=== PATIENT | male | born 1950 | race Caucasian/White ===

== ENCOUNTER 2016-12-11 05:30 | Inpatient (IN) | payer OTHER ==
[2016-11-29 11:56] VITALS: BMI 32.0
--- NOTE | 2016-11-29 12:32 | PAT Medication Instructions ---
Service Date Nov 29, 2016. Current Home Medication List Acetaminophen Tab (Tylenol), 325-650 MG PO PRN Calcium Carbonate-Vitamin D (Calcium + D), 1 TAB PO QPM Chlorthalidone (Hygroton), 50 MG PO QAM Cholecalciferol (Vitamin D3), 1 TAB PO QAM Coenzyme Q10 (Ubidecarenone) (Coq10), 100 MG PO QAM Fexofenadine Hcl (Reina Allergy), 1 TAB PO QAM Fish Oil ([place]-3), 100 MG PO QAM Fluticasone Propionate (Nasal) (Flonase Allergy Relief), 2 SPRAYS LINDA PRN Labetalol Hcl (Normodyne), 100 MG PO BID Levothyroxine Sodium (Synthroid), 175 MCG PO 4XWEEK Levothyroxine Sodium (Levothyroxine Sodium), 1 TAB PO 3XWEEK Milk Thistle (Silybum Marianum (Milk Thistle), 1,000 MG PO QPM Multivitamin (Multivitamin), 1 TAB PO QAM Pravastatin (Pravachol ), 20 MG PO HS Probiotic Product (Probiotic), 1 TAB PO BID Temazepam (Restoril), 15 MG PO HS PRN for PRN Tramadol (Ultram), 1 TAB PO TID PRN for RN [Vitamin B12], 1 TAB PO QAM Medication Instructions For Your Scheduled Surgery - Hold the following medications 1 weeks prior to surgery per surgeon's instructions: Coenzyme Q10 (Ubidecarenone) (Coq10), 100 MG PO QAM Fish Oil ([place]-3), 100 MG PO QAM Aspirin 81mg - Hold the following medications the morning of surgery: Chlorthalidone (Hygroton), 50 MG PO QAM Multivitamin (Multivitamin), 1 TAB PO QAM Probiotic Product (Probiotic), 1 TAB PO BID - Take the following medications the morning of surgery with a sip of water OTHERWISE NOTHING TO EAT OR DRINK AFTER MIDNIGHT: Labetalol Hcl (Normodyne), 100 MG PO BID Levothyroxine Sodium (Synthroid) Fluticasone Propionate (Nasal) (Flonase Allergy Relief), 2 SPRAYS LINDA PRN Tramadol (Ultram), 1 TAB PO TID PRN (may take up to 4 hours prior to surgery if needed) Acetaminophen Tab (Tylenol), 325-650 MG PO PRN (may take up to 4 hours prior to surgery if needed) - Take the following medications as scheduled the night before surgery: Labetalol Hcl (Normodyne), 100 MG PO BID Pravastatin (Pravachol ), 20 MG PO HS Tramadol (Ultram), 1 TAB PO TID PRN Calcium Carbonate-Vitamin D (Calcium + D), 1 TAB PO QPM Milk Thistle (Silybum Marianum (Milk Thistle), 1,000 MG PO QPM Temazepam (Restoril), 15 MG PO HS PRN Probiotic Product (Probiotic), 1 TAB PO BID If you have any questions please call us at [phone] or [phone] or [phone]
[2016-12-11] VITALS (9 sets, daily range): BP systolic 128–183; BP diastolic 71–95; PULSE 71–106; TEMP 36.5–37.1; O2SAT 95–99; Ht 177.8 cm; Wt 100.9 kg
[~2016-12-11] VITALS: Ht 177.8 cm; Wt 100.9 kg
[~2016-12-11 05:30] MED LIST: ACET325T96 PO; ASPI-232 PO; CALC600T9 PO; CHOL1000 PO; COEN100C7 PO; FEXO1TAB49 PO; FLUT0.15 NAE; HYG/25 PO; LBT/100 PO; LEVO175T PO; LEVO200T6 PO; MILK1CAP9 PO; MISCCAP80 PO; MULT-506 PO; OMEG10007 PO; PRAV20TA PO; TEMA15CA4 PO; TRAM-10 PO; VITAMIN B12 PO
[2016-12-11] MEDS ORDERED: LACTATED RINGER'S 1000ML 1,000 ML IV SCH (06:00)
[2016-12-11] MEDS ORDERED: [UNRECOGNIZED DRUG - OTHER] TOP (06:07)
[2016-12-11] MEDS ORDERED: CEFOXITIN IV 2,000 MG in DEXTROSE 5% 50ML 50 ML IV STA (06:17)
[2016-12-11] MEDS ORDERED: BUPIVACAINE 0.5 % 5 MG/1 ML MPF 30ML VIAL ONE (06:38)
[2016-12-11] MEDS ORDERED: ROCURONIUM BROMIDE 10 MG/ML 5 ML VIAL ONE ×2 (06:40→08:48)
[2016-12-11] MEDS ORDERED: MIDAZOLAM HCL 1 MG/ML 2ML VIAL ONE (06:40)
[2016-12-11] MEDS ORDERED: GLYCOPYRROLATE INJ 0.2 MG/ML VIAL ONE ×2 (06:40→08:48)
[2016-12-11] MEDS ORDERED: DEXAMETHASONE SOD INJ 4 MG/ML VIAL ONE (06:40)
[2016-12-11] MEDS ORDERED: LIDOCAINE HCL 2% 2 ML VIAL (20MG/ML) ONE (06:40)
[2016-12-11] MEDS ORDERED: FENTANYL CITRATE INJ 50 MCG/1 ML 2 ML VIAL ONE ×3 (06:40→09:43)
[2016-12-11] MEDS ORDERED: PROPOFOL IV EMULSION 10 MG/ML 20 ML VIAL IV ONE (06:40)
[2016-12-11] MEDS ORDERED: ONDANSETRON INJ 2 MG/ML 2 ML VIAL ONE ×2 (06:40→08:48)
[2016-12-11] MEDS ORDERED: NEOSTIGMINE METHYLSULFATE 5 MG/5 ML SYR ONE (06:40)
--- NOTE | 2016-12-11 06:59 | History & Physical Bridge Note ---
H&P Re-Evaluation Bridge Note: I have examined the patient, reviewed the History & Physical and in the interval since the performance of the History & Physical I have noted the following changes of clinical significance: No changes noted
[2016-12-11] MEDS ORDERED: FENTANYL CITRATE INJ 50 MCG/1 ML 2 ML VIAL IV PRN (09:30)
[2016-12-11] MEDS ORDERED: ONDANSETRON INJ 2 MG/ML 2 ML VIAL IV PRN ×2 (09:30→10:30)
[2016-12-11] MEDS ORDERED: ATROPINE SULFATE 0.1 MG/ML 5ML SYR IV PRN (09:30)
[2016-12-11] MEDS ORDERED: PROMETHAZINE HCL INJ 6.25 MG in SODIUM CHLORIDE 0.9% 50ML 50 ML IV PRN (09:30)
[2016-12-11] MEDS ORDERED: HYDROmorphone INJ 1 MG/ML SYR IV PRN (09:30)
[2016-12-11] MEDS ORDERED: EpHEDrine SULFATE INJ 50 MG/ML AMP IV PRN (09:30)
[2016-12-11] MEDS ORDERED: KETOROLAC TROMETHAMINE 30 MG/ML VIAL ONE (09:56)
[2016-12-11] MEDS ORDERED: NALOXONE HCL 0.4 MG/1 ML VIAL/CARP IV PRN (10:30)
[2016-12-11] MEDS ORDERED: HYDROmorphone HCL 0.5MG/ML 50 ML CASSETTE ONE (10:31)
--- NOTE | 2016-12-11 10:31 | [facility] Post Operative Brief Note ---
Immediate Operative Summary Operative Date Dec 11, 2016. Pre-Operative Diagnosis Tubular adenoma of colon with dysplasia Post-Operative Diagnosis Tubular adenoma of colon with dysplasia Procedure(s) Performed Laparscopic assisted right hemicolectomy Surgeon DR Rocky Silva Milk Of Lime Slaker Surgeon(s) Dalia Geronimo Estimated Blood Loss 20ML Findings See dictation Specimens A: RIGHT COLON Drains None Anesthesia General Complication(s) None Disposition Surgical ICU
--- NOTE | 2016-12-11 11:02 | Anesthesiology Progress Note ---
Anesthesia Post Op Note Date & Time Dec 11, 2016 at 11:02 Vital Signs Pain Intensity: 3 Vital Signs Past 12 Hours Date Time Temp Pulse Resp B/P Pulse Ox O2 Delivery O2 Flow Rate FiO2 12/11/16 10:55 86 16 143/78 99 Nasal Cannula 2 12/11/16 10:45 36.6 86 16 158/77 99 Nasal Cannula 2 12/11/16 10:35 87 14 157/82 100 Mask 10 12/11/16 10:25 86 14 154/73 100 Mask 10 12/11/16 10:17 36.1 88 14 152/78 100 Mask 10 12/11/16 05:44 36.7 83 22 170/95 97 Room Air Notes Mental Status: alert / awake / arousable, participated in evaluation Pt Amnestic to Procedure: Yes Nausea / Vomiting: adequately controlled Pain: adequately controlled Airway Patency, RR, SpO2: stable & adequate BP & HR: stable & adequate Hydration State: stable & adequate Anesthetic Complications: no major complications apparent
[2016-12-11] MEDS: SODIUM CHLORIDE 0.9% 1000ML 1,000 ML IV SCH ×2 (12:39→12:40)
[2016-12-11] MEDS: ALUMINUM/MAGNESIUM SUSP 30 ML UDC NG SCH ×3 (13:13→21:42)
[2016-12-11] MEDS: D5W AND 1/2NSS + 20MEQ KCL 1,000 ML IV SCH ×2 (13:13→21:53)
[2016-12-11 13:58] LABS: HEMATOCRIT 42.8 % (42-52); MEAN CELL VOLUME 85.9 fL (80-100); MEAN CORPUSCULAR HEMOGLOBIN 31.5 pg (25-34); MEAN CORPUSCULAR HGB CONC 36.7 g/dl (32-36); MEAN PLATELET VOLUME 10.8 fL (7.4-10.4); PLATELET COUNT 210 K/uL (130-400); RED BLOOD COUNT 4.98 M/uL (4.7-6.1); WHITE BLOOD COUNT 12.31 K/uL (4.8-10.8)
[2016-12-11 14:12] LABS: INR 1.1 (0.9-1.1); PROTHROMBIN TIME (PATIENT) 11.4 SECONDS (9.0-12.0)
[2016-12-11 14:14] LABS: CREATININE 1.1 mg/dl (0.60-1.40)
--- NOTE | 2016-12-11 18:54 | OPERATIVE REPORT ---
DATE OF OPERATION: 12/11/2016 PREOPERATIVE DIAGNOSIS: Tubular adenoma with severe dysplasia in the right colon. POSTOPERATIVE DIAGNOSIS: Same. PROCEDURE: Laparoscopic assisted right hemicolectomy. SURGEON: Dr. Silva. RN OFFICE: Dalia Geronimo PA-C. FINDINGS: The site of the tubular adenoma with severe dysplasia had been inked and that was easily identified in the right colon. The right colectomy was easily performed. The anastomosis was wide. There were no other gross abnormalities of the colon identified. The liver appeared to be of normal size and contour. TECHNIQUE: The patient was given a general anesthetic and the area was prepped and draped in the usual sterile fashion. A small vertical incision was made above the umbilicus, carried down through the subcutaneous tissue to the fascia which was grasped with 2 Reinier clamps and incised between. The peritoneum was identified, incised, and the introducer was placed bluntly. The abdomen was then insufflated to a pressure of 15 mmHg with carbon dioxide. The 2 left-sided 5 mm introducers were placed under direct vision through small skin incision. The right lower quadrant introducer was placed under direct vision through small skin incision. Traction was placed medially at the cecum and terminal ileum. There were some adhesions from his previous appendectomy that were taken down, which freed the entire terminal ileum. I then worked from inferior to superior along the line of Toldt and divided those attachments working from anterior to posterior up to the splenic flexure. When I reached the splenic flexure, I then was able to identify the beginning attachment of the omentum and I the omentum off the transverse colon working from initially right towards the left till I was about the mid transverse colon. I then divided the peritoneal attachments freeing the hepatic flexure. All of that dissection was done with the LigaSure. I was able to identify the duodenum left in its anatomic position. The dissection was carried and using blunt cautery dissection until the mesentery was freed down to the base. I then divided some other flimsy attachments along the right colon, which freed it such that it would be able to be brought to the midline with ease. The vertical midline incision above the umbilicus was then lengthened. The layers were opened along the length of the skin incision. I was able then to easily bring the terminal ileum and right colon and the proximal third of the transverse colon out through the incision. The site on the small bowel for division was chosen and the mesentery was away from the bowel there. It was divided using the RONY stapler. A site on the transverse colon was chosen and the mesentery was away from the bowel there and it was also divided using the RONY stapler. The intervening mesentery was divided using LigaSure, but the major vessels were doubly clamped, divided, and ligated with a 2-0 Vicryl tie and a 2-0 Vicryl suture ligature. This was completed and the specimen removed. The area was inspected for bleeding and none was seen. The anastomosis was then performed. The small bowel was approximated to the wall of the colon using stay sutures of 3-0 silk. The antimesenteric border of each staple line was removed and the RONY stapler was passed into each limb of the bowel and it was then fired. The staple line was inspected internally for bleeding and none was seen. The common opening was closed with a firing of a TA 60 stapler. Additional 3-0 silk sutures were placed for reinforcement. The mesentery was closed with a running 2-0 Vicryl. That was placed back into its anatomic position and the omentum was brought down over the anastomosis. The three 5 mm introducers had been previously removed. The fascia of the midline incision was closed with a running #1 PDS. The wounds were irrigated and irrigation removed. The skin was closed with aurelia. Estimated blood loss was 20 mL. Sponge, needle and instrument counts were correct prior to closure. The patient tolerated the surgical procedure without complication and was transferred to recovery. I attest to the content of the Intraoperative Record and any orders documented therein. Any exceptions are noted below. MTDD
[2016-12-11] MEDS: HYDROmorphone HCL 0.5MG/ML 50 ML CASSETTE IV PRN ×2 (18:56→22:56)
[2016-12-12] VITALS (8 sets, daily range): BP systolic 146–169; BP diastolic 68–79; PULSE 73–85; TEMP 36.6–37.1; O2SAT 93–98
[2016-12-12] MEDS: D5W AND 1/2NSS + 20MEQ KCL 1,000 ML IV SCH ×3 (05:46→20:38)
[2016-12-12] MEDS: HYDROmorphone HCL 0.5MG/ML 50 ML CASSETTE IV PRN ×3 (07:09→23:02)
--- NOTE | 2016-12-12 07:26 | Surgery Progress Note ---
Surgery Progress Note Date of Service Dec 12, 2016. Subjective + pain controlled (having mild pain), No bowel movement, No flatus, No nausea, No vomiting Objective Vital Signs: Date Time Temp Pulse Resp B/P Pulse Ox O2 Delivery O2 Flow Rate FiO2 12/12/16 03:15 36.9 85 17 146/74 96 Room Air 12/12/16 00:15 Room Air 12/11/16 22:53 36.9 95 17 128/71 95 Room Air 12/11/16 20:00 Room Air 12/11/16 16:01 37.1 105 17 139/83 96 Room Air 12/11/16 14:25 36.8 106 16 160/89 97 Room Air 12/11/16 13:15 36.5 103 16 156/80 98 2.0 12/11/16 12:15 98 16 169/79 98 2.0 12/11/16 11:45 36.5 93 16 183/80 99 2.0 12/11/16 11:21 99 Nasal Cannula 2.0 12/11/16 11:15 99 Nasal Cannula 2.0 12/11/16 11:15 36.6 71 16 155/81 99 Nasal Cannula 2.0 12/11/16 11:05 36.6 88 16 137/86 99 Nasal Cannula 2 12/11/16 10:55 86 16 143/78 99 Nasal Cannula 2 12/11/16 10:45 36.6 86 16 158/77 99 Nasal Cannula 2 12/11/16 10:35 87 14 157/82 100 Mask 10 12/11/16 10:25 86 14 154/73 100 Mask 10 12/11/16 10:17 36.1 88 14 152/78 100 Mask 10 Abdomen: non distended, soft, + tenderness (Incisional only) Incision(s): clean, dry, intact, no erythema, no drainage Laboratory Results: Results Past 24 Hours Test 12/11/16 13:51 12/12/16 04:44 Range/Units White Blood Count 12.31 4.8-10.8 K/uL Red Blood Count 4.98 4.7-6.1 M/uL Hemoglobin 15.7 14.0-18.0 g/dL Hematocrit 42.8 42-52 % Mean Corpuscular Volume 85.9 80-100 fL Mean Corpuscular Hemoglobin 31.5 25-34 pg Mean Corpuscular Hemoglobin Concent 36.7 32-36 g/dl RDW Standard Deviation 40.5 36.4-46.3 fL RDW Coefficient of Variation 12.8 11.5-14.5 % Platelet Count 210 130-400 K/uL Mean Platelet Volume 10.8 7.4-10.4 fL Prothrombin Time 11.4 9.0-12.0 SECONDS Prothromb Time International Ratio 1.1 0.9-1.1 Activated Partial Thromboplast Time 25.7 21.0-31.0 SECONDS Partial Thromboplastin Ratio 1.0 Creatinine 1.10 0.60-1.40 mg/dl Est Creatinine Clear Calc Drug Dose 77.6 ml/min Estimated GFR () 80.1 Estimated GFR (Non- 69.1 Assessment & Plan S/P laparoscopic assisted right colectomy Stable Labs pending OOB today Continue NGT for now Path pending
[2016-12-12] MEDS: ALUMINUM/MAGNESIUM SUSP 30 ML UDC NG SCH ×4 (07:59→20:38)
[2016-12-12 08:25] LABS: COMPLETE YES; EOS % 0.1 %; HEMATOCRIT 39.1 % (42-52); IG% 0.2 %; LYMPH % 13.7 %; LYMPH ABS # 1.71 K/uL (1.2-3.4); MEAN CORPUSCULAR HEMOGLOBIN 30.4 pg (25-34); MEAN CORPUSCULAR HGB CONC 35.8 g/dl (32-36); MEAN PLATELET VOLUME 10.5 fL (7.4-10.4); MONO % 9.5 %; NEUT % 76.5 %; PLATELET COUNT 211 K/uL (130-400); WHITE BLOOD COUNT 12.48 K/uL (4.8-10.8)
[2016-12-12 08:48] LABS: BUN/CREATININE RATIO 14.3 (10-20); CALCIUM 8.7 mg/dl (8.5-10.1); CREATININE 1.1 mg/dl (0.60-1.40)
[2016-12-12] MEDS: ENOXAPARIN 40 MG/0.4 ML SYR SQ SCH (10:14)
[2016-12-12] MEDS ORDERED: NURSING DECISION MEDICATION ORDER SCH (15:15)
[2016-12-12] MEDS ORDERED: CHLORASEPTIC 1.4% SOLN 180 ML BTL MT PRN (15:30)
--- NOTE | 2016-12-12 16:15 | Anesthesiology Progress Note ---
Anesthesia Post Op Note Date & Time Dec 12, 2016 at 16:14 Vital Signs Vital Signs Past 12 Hours Date Time Temp Pulse Resp B/P Pulse Ox O2 Delivery O2 Flow Rate FiO2 12/12/16 15:29 36.8 79 18 169/72 95 Room Air 12/12/16 11:47 36.8 80 18 154/68 98 Room Air 12/12/16 10:26 96 Room Air 12/12/16 07:31 36.7 73 18 151/79 93 Room Air 12/12/16 07:28 96 Room Air Notes Mental Status: alert / awake / arousable, participated in evaluation Pt Amnestic to Procedure: Yes Nausea / Vomiting: adequately controlled Pain: adequately controlled Airway Patency, RR, SpO2: stable & adequate BP & HR: stable & adequate Hydration State: stable & adequate Anesthetic Complications: no major complications apparent
[2016-12-13] VITALS (8 sets, daily range): BP systolic 135–171; BP diastolic 76–88; PULSE 67–81; TEMP 36.7–37; O2SAT 94–97
[2016-12-13] MEDS: D5W AND 1/2NSS + 20MEQ KCL 1,000 ML IV SCH ×3 (04:29→20:35)
[2016-12-13 06:33] LABS: BASO % 0.3 %; BASO ABS # 0.03 K/uL (0-0.2); COMPLETE YES; EOS % 1.6 %; HEMATOCRIT 40.3 % (42-52); IG% 0.2 %; LYMPH ABS # 1.96 K/uL (1.2-3.4); MEAN CELL VOLUME 86.9 fL (80-100); MEAN CORPUSCULAR HGB CONC 35.7 g/dl (32-36); MEAN PLATELET VOLUME 10.6 fL (7.4-10.4); MONO % 12.4 %; NEUT % 63.5 %; PLATELET COUNT 185 K/uL (130-400); RED BLOOD COUNT 4.64 M/uL (4.7-6.1); WHITE BLOOD COUNT 8.89 K/uL (4.8-10.8)
[2016-12-13] MEDS: HYDROmorphone HCL 0.5MG/ML 50 ML CASSETTE IV PRN ×3 (07:01→22:55)
--- NOTE | 2016-12-13 07:04 | Surgery Progress Note ---
Surgery Progress Note Date of Service Dec 13, 2016. Subjective Post OP Day: 2 No bowel movement, No flatus, No nausea, No vomiting Objective Vital Signs: Date Time Temp Pulse Resp B/P Pulse Ox O2 Delivery O2 Flow Rate FiO2 12/13/16 02:45 36.7 77 17 164/77 97 Room Air 12/13/16 00:45 Room Air 12/12/16 23:25 37.1 79 17 155/77 94 Room Air 12/12/16 17:30 36.6 79 21 152/72 97 Room Air 12/12/16 16:00 Room Air 12/12/16 15:29 36.8 79 18 169/72 95 Room Air 12/12/16 11:47 36.8 80 18 154/68 98 Room Air 12/12/16 10:26 96 Room Air 12/12/16 07:31 36.7 73 18 151/79 93 Room Air 12/12/16 07:28 96 Room Air Abdomen: non distended, soft, + tenderness (minimal) Incision(s): clean, dry, intact, no erythema, no drainage Laboratory Results: Results Past 24 Hours Test 12/12/16 08:05 12/13/16 06:06 Range/Units White Blood Count 12.48 8.89 4.8-10.8 K/uL Red Blood Count 4.60 4.64 4.7-6.1 M/uL Hemoglobin 14.0 14.4 14.0-18.0 g/dL Hematocrit 39.1 40.3 42-52 % Mean Corpuscular Volume 85.0 86.9 80-100 fL Mean Corpuscular Hemoglobin 30.4 31.0 25-34 pg Mean Corpuscular Hemoglobin Concent 35.8 35.7 32-36 g/dl Platelet Count 211 185 130-400 K/uL Mean Platelet Volume 10.5 10.6 7.4-10.4 fL Neutrophils (%) (Auto) 76.5 63.5 % Lymphocytes (%) (Auto) 13.7 22.0 % Monocytes (%) (Auto) 9.5 12.4 % Eosinophils (%) (Auto) 0.1 1.6 % Basophils (%) (Auto) 0.0 0.3 % Neutrophils # (Auto) 9.54 5.64 1.4-6.5 K/uL Lymphocytes # (Auto) 1.71 1.96 1.2-3.4 K/uL Monocytes # (Auto) 1.19 1.10 0.11-0.59 K/uL Eosinophils # (Auto) 0.01 0.14 0-0.5 K/uL Basophils # (Auto) 0.00 0.03 0-0.2 K/uL RDW Standard Deviation 39.6 41.8 36.4-46.3 fL RDW Coefficient of Variation 12.9 13.1 11.5-14.5 % Immature Granulocyte % (Auto) 0.2 0.2 % Immature Granulocyte # (Auto) 0.03 0.02 0.00-0.02 K/uL Sodium Level 137 136-145 mmol/L Potassium Level 3.0 3.5-5.1 mmol/L Chloride Level 102 98-107 mmol/L Carbon Dioxide Level 26 21-32 mmol/L Anion Gap 9.0 3-11 mmol/L Blood Urea Nitrogen 16 7-18 mg/dl Creatinine 1.10 0.60-1.40 mg/dl Est Creatinine Clear Calc Drug Dose 77.6 ml/min Estimated GFR () 80.1 Estimated GFR (Non- 69.1 BUN/Creatinine Ratio 14.3 10-20 Random Glucose 150 70-99 mg/dl Calcium Level 8.7 8.5-10.1 mg/dl Assessment & Plan S/P laparoscopic assisted right colectomy Stable WBC normal Continue to ambulate Continue NGT for now Path pending
[2016-12-13 07:07] LABS: BUN/CREATININE RATIO 11.5 (10-20); CALCIUM 8.4 mg/dl (8.5-10.1); POTASSIUM 3.2 mmol/L (3.5-5.1)
[2016-12-13] MEDS: ALUMINUM/MAGNESIUM SUSP 30 ML UDC NG SCH ×4 (08:38→20:29)
[2016-12-13] MEDS: SODIUM CHLORIDE 0.9% 1000ML 1,000 ML IV SCH (10:14)
[2016-12-13] MEDS: ENOXAPARIN 40 MG/0.4 ML SYR SQ SCH (10:15)
[2016-12-13] MEDS ORDERED: NURSING VERBAL MED ORDER ONE (17:00)
[2016-12-13] MEDS: LABETALOL HCL 100 MG TAB PO SCH (20:35)
[2016-12-14] VITALS (8 sets, daily range): BP systolic 137–197; BP diastolic 75–97; PULSE 60–75; TEMP 36.7–36.9; O2SAT 96–98
[2016-12-14] MEDS: D5W AND 1/2NSS + 20MEQ KCL 1,000 ML IV SCH ×2 (04:26→12:24)
[2016-12-14 06:43] LABS: BASO % 0.3 %; BASO ABS # 0.02 K/uL (0-0.2); COMPLETE YES; EOS % 4.4 %; HEMATOCRIT 38.7 % (42-52); IG% 0.1 %; LYMPH % 29.2 %; LYMPH ABS # 2.13 K/uL (1.2-3.4); MEAN CELL VOLUME 89.4 fL (80-100); MEAN CORPUSCULAR HEMOGLOBIN 30.9 pg (25-34); MEAN CORPUSCULAR HGB CONC 34.6 g/dl (32-36); MEAN PLATELET VOLUME 11.2 fL (7.4-10.4); MONO % 12.3 %; NEUT % 53.7 %; PLATELET COUNT 174 K/uL (130-400); RED BLOOD COUNT 4.33 M/uL (4.7-6.1)
[2016-12-14] MEDS: HYDROmorphone HCL 0.5MG/ML 50 ML CASSETTE IV PRN ×2 (06:48→08:09)
[2016-12-14] MEDS: LABETALOL HCL 100 MG TAB PO SCH ×2 (08:06→21:26)
[2016-12-14] MEDS: ALUMINUM/MAGNESIUM SUSP 30 ML UDC NG SCH (08:06)
[2016-12-14] MEDS: SODIUM CHLORIDE 0.9% 1000ML 1,000 ML IV SCH (10:00)
[2016-12-14] MEDS: ENOXAPARIN 40 MG/0.4 ML SYR SQ SCH (10:29)
[2016-12-14] MEDS ORDERED: NURSING VERBAL MED ORDER ONE (11:30)
[2016-12-14] MEDS ORDERED: TEMAZEPAM 15 MG CAP PO PRN (12:30)
[2016-12-14] MEDS ORDERED: OXYCODONE/ACETAMINOPHEN 5-325 TAB PO PRN (12:30)
--- NOTE | 2016-12-14 14:52 | Surgery Progress Note ---
Surgery Progress Note Date of Service Dec 14, 2016. Subjective Post OP Day: 3 (S/p laparoscopic assisted right hemicolectomy with primary anastomosis) + ambulating (in room), + bowel movement, + diet (tolerating clear liquids), + feeling well, + flatus, + pain controlled, + using DIABETES MANAGER (minimal), No SOB, No chest pain, No complaints, No nausea, No vomiting Objective Vital Signs: Date Time Temp Pulse Resp B/P Pulse Ox O2 Delivery O2 Flow Rate FiO2 12/14/16 11:05 36.7 65 16 157/80 96 Room Air 12/14/16 07:54 96 Room Air 12/14/16 07:26 36.9 68 16 197/97 96 Room Air 12/14/16 03:40 36.8 61 17 169/84 98 Room Air 12/14/16 00:11 Room Air 12/13/16 22:52 36.9 72 18 152/85 96 Room Air 12/13/16 20:34 70 170/86 12/13/16 19:59 37.0 81 16 167/88 96 Room Air 12/13/16 16:00 Room Air 12/13/16 15:15 36.8 67 16 171/83 96 Room Air General Appearance: WD/WN, no apparent distress Head: normocephalic, atraumatic Respiratory/Chest: no respiratory distress, no accessory muscle use Abdomen: non tender, non distended, soft Incision(s): clean, dry, intact, no drainage, erythema (slight, no cellulitis) Extremities: normal range of motion Laboratory Results: Results Past 24 Hours Test 12/14/16 05:13 Range/Units White Blood Count 7.30 4.8-10.8 K/uL Red Blood Count 4.33 4.7-6.1 M/uL Hemoglobin 13.4 14.0-18.0 g/dL Hematocrit 38.7 42-52 % Mean Corpuscular Volume 89.4 80-100 fL Mean Corpuscular Hemoglobin 30.9 25-34 pg Mean Corpuscular Hemoglobin Concent 34.6 32-36 g/dl Platelet Count 174 130-400 K/uL Mean Platelet Volume 11.2 7.4-10.4 fL Neutrophils (%) (Auto) 53.7 % Lymphocytes (%) (Auto) 29.2 % Monocytes (%) (Auto) 12.3 % Eosinophils (%) (Auto) 4.4 % Basophils (%) (Auto) 0.3 % Neutrophils # (Auto) 3.92 1.4-6.5 K/uL Lymphocytes # (Auto) 2.13 1.2-3.4 K/uL Monocytes # (Auto) 0.90 0.11-0.59 K/uL Eosinophils # (Auto) 0.32 0-0.5 K/uL Basophils # (Auto) 0.02 0-0.2 K/uL RDW Standard Deviation 42.5 36.4-46.3 fL RDW Coefficient of Variation 12.9 11.5-14.5 % Immature Granulocyte % (Auto) 0.1 % Immature Granulocyte # (Auto) 0.01 0.00-0.02 K/uL Assessment & Plan POD # 3 s/p Laparoscopic assisted right hemicolectomy with primary anastomosis - AVSS except hypertensive, ordered home beta jesus alberto last evening - return of bowel function - minimal abdominal pain - tolerating full liquids PLAN: Advance diet to full liquids Decrease IV fluids @83 mls/hr d/c Dilaudid DIABETES MANAGER Start oral Percocet prn pain start all home meds encourage ambulation Hopeful discharge later tomorrow or Sunday morning Dr. Silva has seen and examined patient and is in agreement with above stated findings and treatment plan.
[2016-12-14] MEDS: PRAVASTATIN SOD 20 MG TAB PO SCH (21:25)
[2016-12-15] MEDS: D5W AND 1/2NSS + 20MEQ KCL 1,000 ML IV SCH ×2 (01:40→14:13)
[2016-12-15] MEDS: LEVOTHYROXINE 175 MCG TAB PO SCH (05:38)
[2016-12-15 07:42] VITALS: BP 172/90; PULSE 71; TEMP 36.9; O2SAT 97
[2016-12-15] MEDS: LABETALOL HCL 100 MG TAB PO SCH ×2 (07:50→20:39)
[2016-12-15] MEDS: CHLORTHALIDONE 25 MG TAB PO SCH (07:50)
[2016-12-15] MEDS: CHOLECALCIFEROL 1000 INTER.UNIT TAB PO SCH (09:14)
[2016-12-15] MEDS: MULTIVITAMIN TAB PO SCH (09:14)
[2016-12-15] MEDS: FEXOFENADINE HCL 180 MG TAB PO SCH (09:14)
[2016-12-15] MEDS: OMEGA-3 (PURIFIED FISH OIL) 1 GM CAP PO SCH (09:14)
--- NOTE | 2016-12-15 09:15 | Surgery Progress Note ---
Surgery Progress Note Date of Service Dec 15, 2016. Subjective Post OP Day: 4 + bowel movement, + diet (tolerated clear liquids), + feeling well, + flatus, No nausea, No pain controlled (having very little), No vomiting Objective Vital Signs: Date Time Temp Pulse Resp B/P Pulse Ox O2 Delivery O2 Flow Rate FiO2 12/15/16 07:42 36.9 71 18 172/90 97 Room Air 12/15/16 07:35 Room Air 12/14/16 23:30 71 167/83 12/14/16 22:47 36.7 75 17 188/88 97 Room Air 12/14/16 21:24 63 166/83 12/14/16 19:30 Room Air 12/14/16 15:19 36.7 60 16 137/75 97 Room Air 12/14/16 11:05 36.7 65 16 157/80 96 Room Air Abdomen: normal bowel sounds, non tender, non distended, soft Incision(s): clean, dry, intact, no erythema, no drainage Assessment & Plan S/P laparoscopic assisted right colectomy Stable Continue to ambulate Advance to regular diet Path sowed small focus of invasive disease, discussed with patient
[2016-12-15 09:24] VITALS: O2SAT 97
[2016-12-15] MEDS: ENOXAPARIN 40 MG/0.4 ML SYR SQ SCH (10:43)
[2016-12-15] MEDS ORDERED: OXYC-57 PO (11:22)
--- NOTE | 2016-12-15 11:25 | Discharge Instructions ---
Discharge Instructions Admission Reason for Admission: Tubular Adenoma of Colon Discharge Discharge Diagnosis / Problem: s/p right hemicolectomy Discharge Goals Goal(s): Decrease discomfort, Improve function, Improve nutritional status Activity Recommendations Activity Limitations: as noted below No heavy lifting over 10 pounds for 6 weeks Walking is encouraged No strenuous activity No driving while taking narcotic pain medication or until you are pain free whichever comes first. . Instructions / Follow-Up Instructions / Follow-Up You may shower No submerging incision underwater for at least 2 weeks You do not need to keep a dressing on incision sites Follow-up in surgical office in about 1 week for staple removal Please call office at [phone] to make an appointment If you develop severe abdominal pain, nausea, vomiting, incisional pain/redness/ drainage please call office or if severe go to emergency room for further evaluation. Current Hospital Diet Patient's current hospital diet: Regular Diet Discharge Diet Recommended Diet: Regular Diet Procedures Procedures Performed: Laparscopic assisted right hemicolectomy Pending Studies Studies pending at discharge: no Medical Emergencies . Who to Call and When: Medical Emergencies: If at any time you feel your situation is an emergency, please call 911 immediately. . Non-Emergent Contact Non-Emergency issues call your: Primary Care Provider, Surgeon Call Non-Emergent contact if: temperature is above 101.5, your pain is not controlled, your pain is worsening, wound has increased drainage, wound has increased redness, wound has increased pain . "Provider Documentation" section prepared by Dalia Geronimo. VTE Core Measure Inpt VTE Proph given/why not?: Enoxaparin (Lovenox)SQ, SCD's [place] Drug Monitoring Program Search Results: patient reviewed within database, no issues identified
[2016-12-15 12:37] VITALS: BP 159/77; PULSE 70; TEMP 36.8; O2SAT 96
[2016-12-15 15:19] VITALS: BP 169/83; PULSE 69; TEMP 36.8; O2SAT 97
[2016-12-15] MEDS: PRAVASTATIN SOD 20 MG TAB PO SCH (20:39)
[2016-12-15 23:32] VITALS: BP 169/75; PULSE 64; TEMP 36.8; O2SAT 98
[2016-12-16] MEDS: D5W AND 1/2NSS + 20MEQ KCL 1,000 ML IV SCH (01:51)
[2016-12-16] MEDS: LEVOTHYROXINE 175 MCG TAB PO SCH (05:35)
--- NOTE | 2016-12-16 05:56 | Surgery Progress Note ---
Surgery Progress Note Date of Service Dec 16, 2016. Subjective + bowel movement, + feeling well Objective Vital Signs: Date Time Temp Pulse Resp B/P Pulse Ox O2 Delivery O2 Flow Rate FiO2 12/16/16 00:00 Room Air 12/15/16 23:32 36.8 64 20 169/75 98 Room Air 12/15/16 15:30 Room Air 12/15/16 15:19 36.8 69 16 169/83 97 Room Air 12/15/16 12:37 36.8 70 16 159/77 96 Room Air 12/15/16 09:24 97 Room Air 12/15/16 07:42 36.9 71 18 172/90 97 Room Air 12/15/16 07:35 Room Air General Appearance: no apparent distress Respiratory/Chest: no respiratory distress Abdomen: soft Incision(s): intact Assessment & Plan 12/16/16- will discharge pt home today- seems to be doing well no complaints
[2016-12-16 07:15] VITALS: BP 169/75; PULSE 64; TEMP 36.8; O2SAT 98
[2016-12-16 07:43] VITALS: BP 170/88; PULSE 62; TEMP 36.9; O2SAT 96
[2016-12-16] MEDS: OMEGA-3 (PURIFIED FISH OIL) 1 GM CAP PO SCH (09:18)
[2016-12-16] MEDS: CHLORTHALIDONE 25 MG TAB PO SCH (09:18)
[2016-12-16] MEDS: FEXOFENADINE HCL 180 MG TAB PO SCH (09:19)
[2016-12-16] MEDS: LABETALOL HCL 100 MG TAB PO SCH (09:19)
[2016-12-16] MEDS: CHOLECALCIFEROL 1000 INTER.UNIT TAB PO SCH (09:19)
[2016-12-16] MEDS: MULTIVITAMIN TAB PO SCH (09:19)
[2016-12-17] MEDS ORDERED: LEVOTHYROXINE 200 MCG TAB PO SCH (06:00)
--- NOTE | 2016-12-18 14:42 | Discharge Summary ---
Discharge Summary Dates Admission Date / Time: Dec 11, 2016 at 06:58 Discharge Date: Dec 16, 2016 Dispostion / Condition Discharge Disposition: Home Condition at Discharge: Good Principal Diagnosis (1) Tubular adenoma of colon Consultations / Procedures Consultations: NONE Procedures: Laparoscopic assisted right hemicolectomy with primary anastomosis Pending Studies / Follow-Up NONE Medication Reconciliation New Medications: Oxycodone/Acetaminophen 5MG/325MG (Percocet 5MG/325MG) Tab 1 TABLET PO Q4H PRN for Pain, #18 TAB Continued Medications: Acetaminophen Tab (Tylenol) 325 Mg Tab 325-650 MG PO PRN, TAB Aspirin (Aspir-81) 81 Mg Tab 1 TAB PO DAILY for 90 Days, #90 TAB 3 Refills Calcium Carbonate-Vitamin D (Calcium + D) 1 Tab Tab 1 TAB PO QPM Chlorthalidone (Hygroton) 25 Mg Tab 50 MG PO QAM, TAB Cholecalciferol (Vitamin D3) 1,000 Unit Tab 1 TAB PO QAM for 90 Days, #90 TAB 3 Refills Coenzyme Q10 (Ubidecarenone) (Coq10) 100 Mg Cap 100 MG PO QAM Fexofenadine Hcl (Reina Allergy) 180 Mg Tab 1 TAB PO QAM for 14 Days, #14 TAB 2 Refills Fish Oil ([place]-3) 1 Ea Cap 100 MG PO QAM, CAP Fluticasone Propionate (Nasal) (Flonase Allergy Relief) 50 Mcg/Act Spr 2 SPRAYS LINDA PRN Labetalol Hcl (Normodyne) 100 Mg Tab 100 MG PO BID, TAB Levothyroxine Sodium (Synthroid) 175 Mcg Tab 175 MCG PO 4XWEEK, TAB Sunday Levothyroxine Sodium (Levothyroxine Sodium) 200 Mcg Tab 1 TAB PO 3XWEEK for 90 Days, TAB 3 Refills Sunday Milk Thistle (Silybum Marianum (Milk Thistle) 1,000 Mg Cap 1000 MG PO QPM Multivitamin (Multivitamin) Tab 1 TAB PO QAM, TAB Pravastatin (Pravachol ) 20 Mg Tab 20 MG PO HS, TAB Probiotic Product (Probiotic) 1 Cap Cap 1 TAB PO BID Temazepam (Restoril) 15 Mg Cap 15 MG PO HS PRN for PRN, CAP Tramadol (Ultram) 50 Mg Tab 1 TAB PO TID PRN for RN for 30 Days, #90 TAB [aspricream] () TOP DAILY [Vitamin B12] () 1 TAB PO QAM Admission HPI Per the Admitting provider: The patient was undergoing a routine follow-up colonoscopy for history of colonic polyps. He was found to have a more flat polyp in the right colon. It could not be completely excised using the endoscope. Biopsies revealed a tubular adenoma with localized foci of high-grade dysplasia. The patient has no change in his bowel habits. He was consented for laparoscopic assisted right hemicolectomy at [facility]. Hospital Course (1) Tubular adenoma of colon Resolved Gurvinder underwent laparoscopic assisted right hemicolectomy with primary anastomosis and tolerated procedure well. He was transfered to PACU in stable condition and was then transferred to Med/surg floor for post operative care. POD # 1 pain was controlled and he was stable. POD # 2 diet was advance to clear liquids and home beta jesus alberto was started that evening given hypertension. Rest of vital signs stable. POD # 3 diet was advanced to full liquids, IV fluids were decreased, ANGLE FURNACEMAN was discontinued and oral Percocet was started. POD # 4 diet was advanced to regular diet and all home medications were continued at this time. He was discharged on POD # 5 in stable condition. Overall hospital course was uneventful. Pathology was reviewed with patient once received. Patient will follow- up in 1 week for staple removal. Discharge Instructions as given to patient Copies To Primary Care Provider: Waqas Shoemaker M.D..
== END 2016-12-16 10:00 | disposition home or self-care (01) | DRG 331 ==
LOC: ENRESERVDT → ENRESERVTM → C.ACU 05:30 → C.MSN 06:58 → C.ACU 11:29
PROVIDERS: ADMIT Surgery; ATTEND Surgery
PROC: 0DTF4ZZ Resection of Right Large Intestine, Percutaneous Endoscopic Approach (ICD-10-PCS; principal; 2016-12-11 07:00)
DX: D12.2 Benign neoplasm of ascending colon (principal); I10 Essential (primary) hypertension; E78.5 Hyperlipidemia, unspecified; E03.9 Hypothyroidism, unspecified; R73.02 Impaired glucose tolerance (oral); Z85.828 Personal history of other malignant neoplasm of skin; Z87.442 Personal history of urinary calculi; Z87.891 Personal history of nicotine dependence; Z90.49 Acquired absence of other specified parts of digestive tract; Z79.82 Long term (current) use of aspirin; Z79.899 Other long term (current) drug therapy; Z88.8 Allergy status to other drugs, medicaments and biological substances